=== PATIENT | female | born 1965 | race Caucasian/White ===

== ENCOUNTER 2016-05-01 10:54 | Emergency (ER) | payer MEDICARE, OTHER ==
[~2016-05-01] VITALS: Ht 160 cm; Wt 55.8 kg
[2016-05-01 11:02] VITALS: BP 109/71; PULSE 76; RESP 16; TEMP 98.8; O2SAT 99
--- NOTE | 2016-05-01 11:34 | PD ---
HPI . s/p fall now with left thumb pain Chief Complaint: Fall Time Seen by Provider: 11:34 Travel History International Travel<30 days: No Contact w/Intl Traveler<30days: No Traveled to known affect area: No History of Present Illness HPI 51-year-old female with hearing difficulties and hyperlipidemia here with complaints of a fall earlier today. She now has left thumb pain. Patient tells me she was walking down some stairs when she missed a step and started sliding down the stairwell. She was able to use her left arm to grab onto the railing and sustained a left thumb injury. She also sustained a few scrapes to her right leg, but denies any significant pain in this extremity. She denies any loss of consciousness or head injury. She decided to come to the emergency department for further care due to the pain in her left thumb and is requesting an x-ray. Pain is localized to the left thumb without radiation and rated 6/10. Leg pain is rates as 2/10. She is also c/o of pain on her left side of her chest with inspiration (made complaints to radiology receptionist). She is requesting an xray for that as well. She is visiting from [place]. She is left handed dominant. We used [facility] on the computer. [facility] Past Medical History High Cholesterol: Yes Social History Tobacco Use: No Allergies-Medications (Allergen,Severity, Reaction): Coded Allergies: Codeine (Verified Allergy, Severe, 05/01/16) Demerol (Verified Allergy, Severe, 05/01/16) Morphine (Verified Allergy, Severe, 05/01/16) Uncoded Allergies: SENNATION (Allergy, Severe, 05/01/16) Reported Meds & Prescriptions Reported Meds & Active Scripts Active Ibuprofen 800 Mg Tab 800 Mg PO TID Reported [cholesterol med] Review of Systems General / Constitutional: No: Fever Eyes: No: Visual changes HENT: No: Headaches Cardiovascular: No: Chest Pain or Discomfort Respiratory: No: Shortness of Breath Gastrointestinal: No: Abdominal Pain Genitourinary: No: Dysuria Musculoskeletal: Positive: Pain (left thumb pain/ left rib pain) Skin: No Rash Neurologic: No: Weakness Psychiatric: No: Depression Endocrine: No: Polydipsia Hematologic/Lymphatic: No: Easy Bruising Physical Exam Narrative GENERAL: AAO x 3, no acute distress, Well-nourished, well-developed patient. SKIN: Warm and dry. No visible rashes or bruising. small abrasion to right leg, left hand HEAD: Normocephalic and atraumatic. EYES: No scleral icterus. No injection or drainage. ENT: No nasal drainage noted. Mucous membranes pink. Airway patent. NECK: Supple, trachea midline. No JVD. CARDIOVASCULAR: Regular rate and rhythm without murmurs, gallops, or rubs. RESPIRATORY: Breath sounds equal bilaterally. No accessory muscle use. No rhonchi or rales. GASTROINTESTINAL: Abdomen soft, non-tender, nondistended. EXTREMITIES: No cyanosis or edema. left thumb no edema, ecchymosis, + point tenderness at metacarpal phalangeal joint BACK: Nontender without obvious deformity. No CVA tenderness. PSYCH: AAO x 3, normal affect. Data Data Last Documented VS Vital Signs Date Time Temp Pulse Resp B/P Pulse Ox O2 Delivery O2 Flow Rate FiO2 05/01/16 11:42 96 Room Air 05/01/16 11:02 98.8 76 16 109/71 Orders Hand, Complete ([id number]) (05/01/16 11:43) Chest, Single Ap (05/01/16 12:11) ^ Jaxson Bandage (05/01/16 14:01) MDM Medical Decision Making Medical Screen Exam Complete: Yes Emergency Medical Condition: Yes Medical Record Reviewed: Yes Differential Diagnosis Thumb contusion, less likely thumb sprain, less likely rib fracture Narrative Course 51-year-old female with hearing difficulties and hyperlipidemia here with complaints of a fall earlier today. She now has left thumb pain. Patient tells me she was walking down some stairs when she missed a step and started sliding down the stairwell. She was able to use her left arm to grab onto the railing and sustained a left thumb injury. She also sustained a few scrapes to her right leg, but denies any significant pain in this extremity. She denies any loss of consciousness or head injury. She decided to come to the emergency department for further care due to the pain in her left thumb and is requesting an x-ray. Pain is localized to the left thumb without radiation and rated 6/10. Leg pain is rates as 2/10. She is also c/o of pain on her left side of her chest with inspiration (made complaints to radiology receptionist). She is requesting an xray for that as well. She is visiting from [place]. Patient seen and examined. I do not believe that she has a thumb fracture or any type of rib injury. It is possible that she might have some contusions and is also experiencing some soft tissue pain after the fall. Patient is wanting x-rays and tells me that is the only reason she came to the emergency department. I actually did not recommend cxr, but while in radiology for hand xray, patient c/o rib pain and cardiac cath lab radiology technologist requested xray : no rib fracture or hand fracture. advised ibuprofen jaxson wrap provided to patient abrasions cleaned with saline and antibiotic ointment applied advised to clean at home with soap and water and to use Neosporin Patient verbalized understanding of instructions, questions were answered, and thanked me for their care. I advised them if their condition worsens, please return to the nearest emergency room for further care. Diagnosis Primary Impression: Thumb contusion Qualified Code: S60.012A - Contusion of left thumb without damage to nail, initial encounter Additional Impression: Rib contusion Qualified Code: S20.211A - Rib contusion, right, initial encounter Patient Instructions: Contusion in Adults (ED), General Instructions Additional Instructions: Please return to emergency department if your symptoms return or worsen. Follow up with your primary care provider. You can use [id number] ibuprofen for pain as needed. You can apply ice to your thumb for about 20 minutes, 2-3 times a day. you do not have any rib fractures. You do not have any fractures in your hand. Med/Other Pt SpecificInfo: Prescription(s) given Scripts Ibuprofen 800 Mg Bue059 Mg PO TID #20 TAB Prov:Blaine Boss MD 05/01/16 Disposition: 01 DISCHARGE HOME Condition: Stable Amanda Padilla May 01, 2016 11:34
[2016-05-01] MEDS ORDERED: cholesterol med (11:49)
[2016-05-01] MEDS ORDERED: IBUP800T23 PO (13:01)
--- NOTE | 2016-05-01 13:23 | RADHPO ---
EXAM DATE/TIME: 05/01/2016 12:13 [facility] COMPARISON: No previous studies available for comparison. INDICATIONS : Fell this morning, pain left chest and ribs when taking a deep breath, pain left upper back MEDICAL HISTORY : deaf, communicates by writing SURGICAL HISTORY : None. ENCOUNTER: Initial ACUITY: 1 day PAIN SCORE: 5/10 LOCATION: Left chest FINDINGS: Portable AP view of the chest demonstrates a normal-sized cardiac silhouette. No effusion, consolidat ion, or pneumothorax is visualized. The bones and soft tissues demonstrate no acute abnormality. CONCLUSION: No acute cardiopulmonary abnormality is identified. No rib fracture is appreciated. Chandu Santana MD on May 01, 2016 at 13:19 Board Certified Radiologist. This report was verified electronically.
--- NOTE | 2016-05-01 13:57 | RADHPO ---
EXAM DATE/TIME: 05/01/2016 12:00 [facility] COMPARISON: No previous studies available for comparison. INDICATIONS : Fell this morning, pain anterior and posterior left hand and digits MEDICAL HISTORY : deaf, communicates by writing SURGICAL HISTORY : None. ENCOUNTER: Initial ACUITY: 1 day PAIN SCORE: 5/10 LOCATION: Left hand FINDINGS: Three view examination of the left hand demonstrates no soft tissue swelling, dislocation, or fractur e. The carpal bones appear intact. The interphalangeal and metacarpophalangeal joints are intact. Bony mineralization is normal. CONCLUSION: No acute disease. Blair Pelayo MD on May 01, 2016 at 13:53 Board Certified Radiologist. This report was verified electronically.
== END 2016-05-01 14:20 | disposition home or self-care (01) ==
LOC: PHEFT 10:54
DX: S60.012A Contusion of left thumb without damage to nail, initial encounter (principal); S20.211A Contusion of right front wall of thorax, initial encounter; E78.5 Hyperlipidemia, unspecified; H91.93 Unspecified hearing loss, bilateral; W10.9XXA Fall (on) (from) unspecified stairs and steps, initial encounter
CPT/HCPCS: 71010; 73130; 99283

== ENCOUNTER 2017-08-31 01:58 | Inpatient (IN) ==
[2017-08-31] MEDS ORDERED: Sod Chloride 0.9% Inj 1,000 ML IV.SIG ONE (02:55)
[2017-08-31 03:57] LABS: Baso % (Auto) 0.3 % (0.0-2.0); Eos # (Auto) 0.1 th/mm3 (0.0-0.4); Eos % (Auto) 2.6 % (0.0-4.0); Hematocrit 40.1 % (35.0-46.0); Hemoglobin 13.6 gm/dL (11.6-15.3); Lymph % (Auto) 40.4 % (9.0-44.0); Mean Corpuscular Hemoglobin 30.1 pg (27.0-34.0); Mean Corpuscular Volume 88.5 fL (80.0-100.0); Mean Platelet Volume 8.8 fL (7.0-11.0); Mono # (Auto) 0.4 th/mm3 (0.0-0.9); Mono % (Auto) 7.3 % (0.0-8.0); Neut # (Auto) 2.5 th/mm3 (1.8-7.7); Neut % (Auto) 49.4 % (16.0-70.0); Platelet Count 216 th/mm3 (150-450); Red Blood Count 4.53 mil/mm3 (4.00-5.30); Red Cell Distribution Width 13.4 % (11.6-17.2); White Blood Count 5.1 th/mm3 (4.0-11.0)
[2017-08-31 04:00] LABS: Bilirubin,Urine Negative (Negative); Clarity,Urine Clear (Clear); Color,Urine Colorless (Yellw/Straw); Glucose,Urine (UA) Negative (Negative); Leukocyte Esterase,Urine Negative (Negative); Nitrite,Urine Negative (Negative); Specific Gravity,Urine 1.002 (1.002-1.035)
[2017-08-31 04:07] LABS: Activated Partial Thrombo Time 32.7 sec (24.3-30.1); INR 1.1 Ratio; Prothrombin Time 10.9 sec (9.8-11.6)
--- NOTE | 2017-08-31 04:13 | ED ---
HPI General Chief complaint: Abdominal Pain Stated complaint: abd pain Time Seen by Provider: 08/31/17 02:51 Source: patient and other (Belarusian lead designer) Limitations: other (deaf) History of Present Illness HPI narrative: The patient is a 52 year old female who presents to the [facility] emergency department with a history of abdominal pain that she reports began around midnight. The patient reports that the abdominal pain is around the umbilicus and suprapubic area. The patient reports that the pain is been constant. She reports that it is an aching sensation. The patient reports that the pain is similar to when she has had a bowel obstruction in the past. The patient reports having a prior history of abdominal hernia repair. This was done at another facility years ago. The patient reports having a lump at the site of the prior hernia repair. The patient reports having nausea without vomiting. She denies having any diarrhea. Her last bowel movement was yesterday morning. On review of systems otherwise, the patient denies having any known recent fevers, cough or congestion, neck pain, chest pain, shortness of breath, urinary symptoms, or neurologic symptoms. Related Data Home Medications Medication Instructions Recorded Confirmed lovastatin 10 mg PO DAILY 08/31/17 08/31/17 Allergies Allergy/AdvReac Type Severity Reaction Status Date / Time codeine Allergy Severe Unverified 10/07/16 13:17 meperidine Allergy Severe Unverified 10/07/16 13:17 morphine Allergy Severe Unverified 10/07/16 13:17 SENNATION Allergy Severe Uncoded 05/01/16 11:06 Review of Systems ROS Unobtainable All other systems reviewed negative except as stated in HPI Constitutional Denies fever(s) Eyes Denies change in vision ENT Denies headache(s) and Denies nasal congestion Cardiovascular Denies chest pain Respiratory Denies dyspnea Gastrointestinal Reports abdominal pain, Denies diarrhea, Reports nausea and Denies vomiting Genitourinary Denies difficulty voiding Musculoskeletal Denies myalgias Integumentary/Breasts Denies rash Neurologic Denies headache(s) Psychiatric Denies depression Endocrine Denies polyuria Hematologic/Lymphatic Denies easy bruising [facility] Medical History Medical History Bowel obstruction (Acute) Hernia (Acute) Surgical History Surgical History H/O hernia repair (Acute) History of cholecystectomy (Acute) Social History Social History Second Hand Smoke Exposure: No Smoking Status: Never smoker How Often Do You Have a Drink Containing Alcohol: Never Recent Travel in [facility] within the Last 8 Weeks: No Recent Out of Country Travel within the Last 8 Weeks: No Immunization History Tetanus Immunization: Unsure Hx Influenza Vaccine This Season: No Exam HENMT Head: normocephalic and atraumatic Nose: no nasal discharge and no epistaxis Mouth: moist mucous membranes Eyes Sclera: normal sclerae Pupils: PERRL Neck Neck: trachea midline and no JVD Resp Effort & Inspection: no use of accessory muscles Auscultation: clear to auscultation bilaterally Cardio Rate: regular rate Rhythm: regular rhythm Heart Sounds: no murmurs GI Inspection: non-distended Palpation: soft, no hepatosplenomegaly, no guarding and tender (The patient has a palpable hernia along the lower aspect of the abdomen that was able to be reduced easily. The patient continues to have tenderness around the site that is diminished compared to at its onset at midnight.) periumbilically and suprapubicly; with no rebound tenderness Auscultation: hypoactive bowel sounds Skin General: dry skin (warm) Neuro General: alert and awake Speech: speech normal Motor: no movement abnormalities noted Sensory Exam: no sensory deficits noted Extrem General: normal to inspection, no clubbing, no cyanosis and no edema Psych Mood: congruent mood Affect: normal affect Judgment: judgment good Course Hospital Course: During the course of the patient's emergency department visit, the patient's history, examination, and differential diagnosis were reviewed with the patient. The patient was placed on a night monitor with oximetry and frequent blood pressure monitoring. The patient had IV access obtained and blood work sent for analysis. A CT scan of the abdomen and pelvis was ordered. An Bel[place]ian lead designer was obtained for the patient to obtain additional history. The patient was initially provided normal saline IV fluids, Compazine for nausea. Reevaluation(s) Reevaluation #1: The patient on reexamination reported feeling improved. Consultations Consultation #1: The patient's case including history, pertinent physical examination findings, and laboratory studies were discussed with Dr. Malagon. It was agreed that the patient would be admitted to the hospitalist service. Time: 06:15 Consultation #2: The patient's case including history, pertinent physical examination findings, and laboratory studies were discussed with Dr. Martinez. It was agreed that the patient would be admitted to the hospitalist service. Time: 06:23 Initial Documented Vital Signs Temperature 97.6 F 08/31/17 02:04 Pulse Rate 66 08/31/17 02:04 Respiratory Rate 16 08/31/17 02:04 Blood Pressure 143/77 H 08/31/17 02:04 Pulse Oximetry 100 08/31/17 02:04 Last Documented Vital Signs Temperature 97.6 F 08/31/17 02:04 Pulse Rate 70 08/31/17 02:38 Respiratory Rate 16 08/31/17 02:38 Blood Pressure 124/67 08/31/17 02:38 Pulse Oximetry 99 08/31/17 06:44 Medical Decision Making MDM Narrative Medical decision making narrative: The patient's diagnostic evaluation is remarkable for , PT PTT unremarkablea CBC that shows a normal white count, hemoglobin 13.6, platelets 216 with a normal differential, chemistry is remarkable CMP is within normal limits, troponin I is less than 0.02, CPK 76, lactic acid 0.6, lipase 215. The patient's chest x-ray showed no acute abnormality. CT scan of the abdomen and pelvis showed small anterior abdominal wall hernia approximately 5 cm caudal to the umbilicus containing a loop of small bowel with obstruction of the and immediate aberrant small bowel loops. No evidence of bowel infarction or perforation. I spoke to Dr. Castellanos, the general surgeon on-call regarding this patient's case. He did evaluate and examine the patient. The patient's hernia is reduced on his exam as well. He recommends that the patient be admitted to the hospitalist service and that the patient be maintained n.p.o. He recommended that a consultation be placed with Dr. Arthur Gan for operative repair. Differential Diagnosis Differential Diagnosis: Incarcerated hernia, versus bowel obstruction, versus Lab Data Result diagrams: 08/31/17 03:45 08/31/17 03:45 Lab Results 08/31/17 08/31/17 08/31/17 Range/Units 03:45 03:45 03:45 WBC 5.1 (4.0-11.0) th/mm3 RBC 4.53 (4.00-5.30) mil/mm3 Hgb 13.6 (11.6-15.3) gm/dL Hct 40.1 (35.0-46.0) % MCV 88.5 (80.0-100.0) fL MCH 30.1 (27.0-34.0) pg MCHC 34.0 (32.0-36.0) % RDW 13.4 (11.6-17.2) % Plt Count 216 (150-450) th/mm3 MPV 8.8 (7.0-11.0) fL Neut % (Auto) 49.4 (16.0-70.0) % Lymph % (Auto) 40.4 (9.0-44.0) % Boyle % (Auto) 7.3 (0.0-8.0) % Eos % (Auto) 2.6 (0.0-4.0) % Baso % (Auto) 0.3 (0.0-2.0) % Neut # (Auto) 2.5 (1.8-7.7) th/mm3 Lymph # (Auto) 2.0 (1.0-4.8) th/mm3 Boyle # (Auto) 0.4 (0.0-0.9) th/mm3 Eos # (Auto) 0.1 (0.0-0.4) th/mm3 Baso # (Auto) 0.0 (0.0-0.2) th/mm3 WBC Differential . Differential Comment Auto diff final PT 10.9 (9.8-11.6) sec INR 1.1 Ratio APTT 32.7 H (24.3-30.1) sec Sodium 142 (136-145) meq/L Potassium 3.6 (3.5-5.1) meq/L Chloride 105 (98-107) meq/L Carbon Dioxide 29.8 (21.0-32.0) meq/L Anion Gap 7 (5-15) meq/L BUN 12 (7-18) mg/dL Creatinine 0.62 (0.50-1.00) mg/dL Estimated GFR Greater than 89 (>89) mL/min Random Glucose 79 (74-106) mg/dL Lactic Acid (0.4-2.0) mmol/L Calcium 9.1 (8.5-10.1) mg/dL Total Bilirubin 0.7 (0.2-1.0) mg/dL AST 18 (15-37) U/L ALT 22 (10-53) U/L Alkaline Phosphatase 70 (45-117) U/L Total Creatine Kinase 76 (26-192) U/L Troponin I Less than 0.02 L (0.02-0.05) ng/mL Total Protein 8.0 (6.4-8.2) g/dL Albumin 4.4 (3.4-5.0) g/dL Lipase 215 (73-393) U/L Urine Color (Yellw/Straw) Urine Clarity (Clear) Urine pH (5.0-8.5) Ur Specific [place] (1.002-1.035) Urine Protein (Neg-Trace) mg/dL Urine Glucose (UA) (Negative) mg/dL Urine Ketones (Negative) mg/dL Urine Occult Blood (Negative) Urine Nitrate (Negative) Urine Bilirubin (Negative) Urine Urobilinogen (Less than 2) mg/dL Ur Leukocyte Esterase (Negative) Urine RBC (0-3) /hpf Micro UA Comment Urine Culture Comments 08/31/17 08/31/17 Range/Units 03:45 03:50 WBC (4.0-11.0) th/mm3 RBC (4.00-5.30) mil/mm3 Hgb (11.6-15.3) gm/dL Hct (35.0-46.0) % MCV (80.0-100.0) fL MCH (27.0-34.0) pg MCHC (32.0-36.0) % RDW (11.6-17.2) % Plt Count (150-450) th/mm3 MPV (7.0-11.0) fL Neut % (Auto) (16.0-70.0) % Lymph % (Auto) (9.0-44.0) % Boyle % (Auto) (0.0-8.0) % Eos % (Auto) (0.0-4.0) % Baso % (Auto) (0.0-2.0) % Neut # (Auto) (1.8-7.7) th/mm3 Lymph # (Auto) (1.0-4.8) th/mm3 Boyle # (Auto) (0.0-0.9) th/mm3 Eos # (Auto) (0.0-0.4) th/mm3 Baso # (Auto) (0.0-0.2) th/mm3 WBC Differential Differential Comment PT (9.8-11.6) sec INR Ratio APTT (24.3-30.1) sec Sodium (136-145) meq/L Potassium (3.5-5.1) meq/L Chloride (98-107) meq/L Carbon Dioxide (21.0-32.0) meq/L Anion Gap (5-15) meq/L BUN (7-18) mg/dL Creatinine (0.50-1.00) mg/dL Estimated GFR (>89) mL/min Random Glucose (74-106) mg/dL Lactic Acid 0.6 (0.4-2.0) mmol/L Calcium (8.5-10.1) mg/dL Total Bilirubin (0.2-1.0) mg/dL AST (15-37) U/L ALT (10-53) U/L Alkaline Phosphatase (45-117) U/L Total Creatine Kinase (26-192) U/L Troponin I (0.02-0.05) ng/mL Total Protein (6.4-8.2) g/dL Albumin (3.4-5.0) g/dL Lipase (73-393) U/L Urine Color Colorless (Yellw/Straw) Urine Clarity Clear (Clear) Urine pH 7.0 (5.0-8.5) Ur Specific [place] 1.002 (1.002-1.035) Urine Protein Negative (Neg-Trace) mg/dL Urine Glucose (UA) Negative (Negative) mg/dL Urine Ketones Negative (Negative) mg/dL Urine Occult Blood Small H (Negative) Urine Nitrate Negative (Negative) Urine Bilirubin Negative (Negative) Urine Urobilinogen Less than 2 (Less than 2) mg/dL Ur Leukocyte Esterase Negative (Negative) Urine RBC 1 (0-3) /hpf Micro UA Comment Culture not ind Urine Culture Comments Culture not ind Imaging Data Radiologist's impression: ITS Impressions Abdomen/Pelvis CT 08/31/17 02:51 CONCLUSION: 1. Small anterior abdominal wall hernia approximately 5 cm caudal to the umbilicus containing a loop of small bowel with obstruction of the immediate afferent small bowel loops. No evidence for bowel infarction or perforation. Chest X-Ray 08/31/17 02:51 CONCLUSION: 1. No acute abnormality or significant interval change. Discharge Plan Discharge Disposition Patient Disposition: 30 Still Patient Discharge Details Discharge Problem: Hernia, Small bowel obstruction Physicians Team ED Provider: Jessica Malcolm Primary Care Provider: Primary Care Mitzi Joy Attending Provider: Arnaud Erickson Other Providers: Arthur Gan Discharge Interventions Interventions: Vital Signs Last Done: 08/31/17 02:38 Status ED Status: Admitted Patient
[2017-08-31 04:14] LABS: Alanine Aminotransferase 22 U/L (10-53); Albumin 4.4 g/dL (3.4-5.0); Anion Gap 7 meq/L (5-15); Aspartate Aminotransferase 18 U/L (15-37); Blood Urea Nitrogen 12 mg/dL (7-18); Calcium 9.1 mg/dL (8.5-10.1); Carbon Dioxide 29.8 meq/L (21.0-32.0); Chloride 105 meq/L (98-107); Glomerular Filtration Rate Greater Than 89 mL/min (>89); Glucose,Random 79 mg/dL (74-106); Lipase 215 U/L (73-393); Potassium 3.6 meq/L (3.5-5.1); Sodium 142 meq/L (136-145)
[2017-08-31 04:18] LABS: Alkaline Phosphatase 70 U/L (45-117); Creatine Kinase 76 U/L (26-192)
--- NOTE | 2017-08-31 04:33 | XR ---
EXAM DATE: 08/31/2017 3:56 AM EDT AGE/SEX: 52 years / Female INDICATIONS: Shortness of breath. CLINICAL DATA: This is the patient's initial encounter. Patient reports that signs and symptoms have been present for 1 day and indicates a pain score of 0/10. MEDICAL/SURGICAL HISTORY: None. None. COMPARISON: [facility], CHEST SINGLE AP, 05/01/2016. . FINDINGS: No new focal pleural or parenchymal opacities. The cardiomediastinal contours are unremarkable. Osse ous structures are intact. CONCLUSION: 1. No acute abnormality or significant interval change. Electronically signed by: Jayme Bailey MD 08/31/2017 4:32 AM EDT
--- NOTE | 2017-08-31 06:04 | CT ---
EXAM DATE: 08/31/2017 5:33 AM EDT AGE/SEX: 52 years / Female INDICATIONS: Abdominal pain. CLINICAL DATA: This is the patient's initial encounter. Patient reports that signs and symptoms have been present for 1 day and indicates a pain score of 7/10. MEDICAL/SURGICAL HISTORY: . Hernia Cholecystectomy. ORAL CONTRAST: No oral contrast ingested. RADIATION DOSE: 6.64 CTDI (mGy) COMPARISON: No prior exams available for comparison. TECHNIQUE: Multiple contiguous axial images were obtained through the abdomen and pelvis following b olus infusion of 75 ml Omnipaque 350 (iohexol) nonionic water-soluble contrast as a single exam dos e. No oral contrast ingested. Using automated exposure control and adjustment of the mA and/or kV ac cording to patient size, radiation dose was kept as low as reasonably achievable to obtain optimal di agnostic quality images. DICOM format image data is available electronically for review and comparis on. FINDINGS: LOWER LUNGS: The visualized lower lungs are clear. LIVER: The liver has a homogeneous density without space-occupying lesion. Gallbladder is surgically absent with mild intra and extra hepatic ductal dilatation which likely reflects reservoir effect. SPLEEN: Homogeneous density without enlargement. PANCREAS: Unremarkable without mass or calcification. KIDNEYS: Kidneys demonstrate symmetrical enhancement and are symmetrical in size without evidence fo r radiopaque renal calculi or hydronephrosis. ADRENAL GLANDS: Unremarkable. AORTA: Tram-aneurysmal. BOWEL/MESENTERY: There is an infraumbilical anterior abdominal wall hernia which contains a loop of small bowel. Immediate afferent small bowel loops are dilated and fluid-filled with fecal location. M ore proximal jejunal loops are decompressed. Colon is decompressed. There is no pneumatosis or free a ir. No significant free fluid or drainable fluid collection. ABDOMINAL WALL: Small anterior abdominal wall hernia approximately 5 cm caudal to the umbilicus. RETROPERITONEUM: No evidence of adenopathy in the retrocrural, para-aortic, or deep pelvic regions. BLADDER: Contours are smooth. REPRODUCTIVE: No abnormal masses or calcifications seen. BONY STRUCTURES: Degenerative spondylosis of the lower lumbar spine most prominently at L5-S1. CONCLUSION: 1. Small anterior abdominal wall hernia approximately 5 cm caudal to the umbilicus containing a loop of small bowel with obstruction of the immediate afferent small bowel loops. No evidence for bowel i nfarction or perforation. Electronically signed by: Jayme Bailey MD 08/31/2017 6:03 AM EDT
[2017-08-31] MEDS ORDERED: Sod Chloride 0.9% Inj 1,000 ML IV.CONT SCH (07:00)
--- NOTE | 2017-08-31 09:34 | ECG ---
Date Performed: 08/31/2017 Time Performed: 04:54:04 PTAGE: 52 years EKG: Sinus rhythm NORMAL ECG NO PREVIOUS TRACING DOCTOR: Kory Jeff Interpretating Date/Time 08/31/2017 09:31:47
--- NOTE | 2017-08-31 11:12 | MB ---
cc: Arthur Gan MD DATE: 08/31/2017 CHIEF COMPLAINT: Abdominal pain, bowel obstruction, incarceration of hernia. HISTORY OF PRESENT ILLNESS: The patient is a 52-year-old female who presented with a history of multiple small bowel obstructions, history of ventral hernia repair. The patient is complaining of acute onset of abdominal pain, nausea and vomiting. The patient states the pain started around the umbilicus and suprapubic area, started last night, continued to get worse. She states the pain was a 9/10, currently a 6/10, worse with movement, better with lying still. Last bowel movement was yesterday. She denies any fevers or chills. She came to the emergency department for further evaluation including a CT scan showing an incarceration of ventral hernia and some dilated proximal small bowel loops. Surgery was consulted. PAST MEDICAL HISTORY: Deaf. History of hysterectomy, bowel obstruction. PAST SURGICAL HISTORY: Cholecystectomy, hernia repair x2, hysterectomy. SOCIAL HISTORY: Denies smoking, ETOH or IVDA. ALLERGIES: CODEINE, MEPERIDINE, MORPHINE. MEDICATIONS: See electronic medical record. FAMILY HISTORY: Denies diabetes or hypertension. REVIEW OF SYSTEMS: GENERAL: Denies eye pain, ear pain. NECK: Denies swelling or pain. LUNGS: Denies cough or wheeze. HEART: Denies palpitations or chest pain. ABDOMEN: Complains of nausea, vomiting, abdominal pain. GENITOURINARY: Denies dysuria, hematuria. ENDOCRINE: Denies polyuria or polydipsia. INTEGUMENT: Denies any new masses or lesions. PHYSICAL EXAMINATION: GENERAL: The patient in no acute distress. VITAL SIGNS: Temperature 97.6, pulse 66, respirations 16, blood pressure 143/77, saturation 100%. HEENT: Pupils equal, round, reactive. NECK: Supple. Trachea midline. HEART: S1, S2, regular. LUNGS: Bilateral expansion, clear. ABDOMEN: Soft. Positive tenderness to palpation, worse around periumbilical area and previous incision site. Well-healed surgical scars. No rebound. EXTREMITIES: Warm and well perfused. NEUROLOGIC: GCS of 15. 5/5 motor in all extremities. PSYCHIATRIC: Appropriate mood, appropriate insight. LABORATORY AND DIAGNOSTIC DATA: WBC 5.1, hemoglobin 13.6, hematocrit 40.1, platelets 216. Sodium 142, potassium 3.6, chloride 105, BUN 12, creatinine 0.6, glucose 79, lactate 0.6, AST 18, ALT 20, alkaline phosphatase 70, lipase 215. IMAGING STUDIES: CT reviewed by myself showing incarceration of umbilical hernia with small bowel loop. No evidence of free air or free fluid. ASSESSMENT AND PLAN: The patient is a 52-year-old female with history of bowel obstruction, previously treated nonoperatively, history of hernia repair x2, ventral, who presents with a small-bowel obstruction, recurrent and hernia. PLAN: After a full workup, patient with the above-named issues. At this point, discussed with the patient and family at bedside. I recommend undergoing hernia repair as the patient has had several small bowel obstructions in the past and the hernia appeared to be reduced at bedside. The patient is in still mild to moderate pain. However, given the patient's preferences and understanding, the patient would like to attempt initial nonoperative treatment. Discussed with the patient we will continue to follow with abdominal exams and laboratory data. Further discussed if any clinical deterioration or change that we would need to go to the operating room for intervention. She states understanding of this. Discussed with the patient via dial mounter and discussed with family at bedside. The patient can have ice chips, otherwise n.p.o., IV fluids, pain control. We will check abdominal x-ray and abdominal exams. MD ELIZABETH Sandoval/EDOUARD , 10:51 AM , 11:10 AM
--- NOTE | 2017-08-31 11:19 | P.HPIM ---
History of Present Illness Service: [facility] Primary Care Physician: No Primary Care Physician Chief Complaint: Abdominal pain History of Present Illness: History obtained with the assistance of a director of sustainable design in the room 52-year-old female with a medical history significant for prior bowel obstruction and abdominal hernia repair. The patient presented to the emergency room with complaint of periumbilical pain that started a few hours prior to presentation. She reports the pain has been constant and is similar to prior bowel obstruction. She endorses nausea but denies vomiting. Last bowel movement was yesterday. She denies any chest pain, shortness of breath, no diarrhea. CT scan in the emergency room showed an incarceration of ventral hernia and some dilated proximal small bowel loops. - Diagnosis (1) Small bowel obstruction (2) Hernia Inpatient Certification: I certify that the inpatient services were ordered in accordance with Medicare regulations governing the order. This includes certification that hospital inpatient services are reasonable and necessary and in the case of services not specified as inpatient-only under 42 CFR 419.22(n), that they are appropriately provided as inpatient services in accordance to with the 2-midnight benchmark under 43 CFR 412.3(e) Estimated Total Length of Stay (Days): 3 Plans for Post Hospital Care: Not yet determined PMFSH - History History Provided By: Patient - Medical History Medical History: Medical History (Last Updated 08/31/17 @ 02:06 by Veronika Boggs) Bowel obstruction Hernia - Surgical History Surgical History: Surgical History (Last Updated 08/31/17 @ 07:19 by Jessica Malcolm MD) H/O hernia repair History of cholecystectomy - Tobacco History Second Hand Smoke Exposure: No Smoking Status: Never smoker - Alcohol History How Often Do You Have a Drink Containing Alcohol: Never - Travel History Recent Travel in the [facility] Within the Last 8 Weeks: No Recent Travel Out of the Country Within the Last 8 Weeks: No - Immunization History Tetanus Immunization: Unsure Hx Influenza Vaccine This Season: No Medications and Allergies Active Medications: Active Medications Sodium Chloride (Ns Inj) 1,000 mls @ 100 mls/hr IV.CONT .Q10H [facility] Sodium Chloride (Ns Flush) 2 ml IV.FLUSH PRN PRN PRN Reason: FLUSH AFTER USING IV ACCESS Allergies Allergy/AdvReac Type Severity Reaction Status Date / Time codeine Allergy Severe Unverified 10/07/16 13:17 meperidine Allergy Severe Unverified 10/07/16 13:17 morphine Allergy Severe Unverified 10/07/16 13:17 SENNATION Allergy Severe Uncoded 05/01/16 11:06 Home Medications Medication Instructions Recorded Confirmed Type lovastatin 10 mg PO DAILY 08/31/17 08/31/17 History Exam Vital signs: Vital Signs 08/31/17 02:04 08/31/17 02:38 08/31/17 06:44 Temperature 97.6 F Pulse Rate 66 70 Respiratory Rate 16 16 Blood Pressure 143/77 H 124/67 Pulse Oximetry 100 100 99 08/31/17 09:27 Temperature 98.1 F Pulse Rate 83 Respiratory Rate 15 Blood Pressure 99/57 L Pulse Oximetry 98 Intake & Output 08/30/17 08/31/17 08/31/17 18:59 06:59 18:59 Weight 52.163 kg 52.163 kg Narrative: CONSTITUTIONAL/GENERAL: This is an adequately nourished patient, in no apparent distress. Vital signs reviewed SKIN: No jaundice, rashes, or concerning lesions. Not diaphoretic. HEAD: Atraumatic. Normocephalic. EYES: Pupils equal and round and reactive. Extra ocular motions are intact. No scleral icterus. No injection or drainage. ENT: Hearing grossly normal. Nose without drainage. Throat without visible erythema, exudates, masses, or lesions. NECK: Trachea midline. Neck is supple, non-tender. No palpable thyroid enlargement or nodularity. CARDIOVASCULAR: Normal rate and regular rhythm without murmurs, gallops, or rubs. No JVD. Peripheral pulses 2+ and symmetric. RESPIRATORY/CHEST: Symmetric, unlabored respirations. Breath sounds equal and clear to auscultation bilaterally. No wheezes, crackles, rales, or rhonchi. GASTROINTESTINAL: Abdomen soft, there is a palpable abdominal wall defect below the umbilicus. Tender to palpation around the umbilicus. Hernia easily reducible. MUSCULOSKELETAL: Extremities without clubbing, cyanosis, or edema. NEUROLOGICAL: Awake and alert. Motor and sensory grossly within normal limits. Follows commands. Results - Labs CBC & Chem 7: 08/31/17 03:45 08/31/17 03:45 Labs: Short CBC 08/31/17 Range/Units 03:45 WBC 5.1 (4.0-11.0) th/mm3 Hgb 13.6 (11.6-15.3) gm/dL Hct 40.1 (35.0-46.0) % Plt Count 216 (150-450) th/mm3 BMP 08/31/17 03:45 Sodium 142 Potassium 3.6 Chloride 105 Carbon Dioxide 29.8 BUN 12 Creatinine 0.62 Calcium 9.1 Cardiac Enzymes 08/31/17 Range/Units 03:45 Total Creatine Kinase 76 (26-192) U/L Troponin I Less than 0.02 L (0.02-0.05) ng/mL Liver Function 08/31/17 Range/Units 03:45 Total Bilirubin 0.7 (0.2-1.0) mg/dL AST 18 (15-37) U/L ALT 22 (10-53) U/L Alkaline Phosphatase 70 (45-117) U/L Albumin 4.4 (3.4-5.0) g/dL Urine 08/31/17 Range/Units 03:50 Urine Color Colorless (Yellw/Straw) Urine Clarity Clear (Clear) Urine pH 7.0 (5.0-8.5) Ur Specific [place] 1.002 (1.002-1.035) Urine Protein Negative (Neg-Trace) mg/dL Urine Glucose (UA) Negative (Negative) mg/dL - Imaging Impressions Abdomen/Pelvis CT 08/31/17 02:51 CONCLUSION: 1. Small anterior abdominal wall hernia approximately 5 cm caudal to the umbilicus containing a loop of small bowel with obstruction of the immediate afferent small bowel loops. No evidence for bowel infarction or perforation. Chest X-Ray 08/31/17 02:51 CONCLUSION: 1. No acute abnormality or significant interval change. Caprini VTE Risk Assessment Caprini VTE Risk Assessment: Moderate/High Risk (score >= 2) Caprini Risk Assessment Model: Point Value = 1 Point Value = 2 Point Value = 3 Point Value = 5 Age 41-60 Minor surgery BMI > 25 kg/m2 Swollen legs Varicose veins or History of unexplained or recurrent spontaneous Oral contraceptives or hormone replacement Sepsis (< 1 month) Serious lung disease, including pneumonia (< 1 month) Abnormal pulmonary function Acute myocardial infarction Congestive heart failure (< 1 month) History of inflammatory bowel disease Medical patient at bed rest Age 61-74 Arthroscopic surgery Major open surgery (> 45 min) Laparoscopic surgery (> 45 min) Malignancy Confined to bed (> 72 hours) Immobilizing plaster cast Central venous access Age >= 75 History of VTE Family history of VTE Factor V Leiden Prothrombin [id number] Lupus anticoagulant Anticardiolipin antibodies Elevated serum homocysteine Heparin-induced thrombocytopenia Other congenital or acquired thrombophilia Stroke (< 1 month) Elective arthroplasty Hip, pelvis, or leg fracture Acute spinal cord injury (< 1 month) Prophylaxis Regimen: Total Risk Factor Score Risk Level Prophylaxis Regimen 0-1 Low Early ambulation 2 Moderate Order ONE of the following: *Sequential Compression Device (SCD) *Heparin 5000 units SQ BID 3-4 Higher Order ONE of the following medications: *Heparin 5000 units SQ TID *Enoxaparin/Lovenox 40 mg SQ daily (WT < 150 kg, CrCl > 30 mL/min) *Enoxaparin/Lovenox 30 mg SQ daily (WT < 150 kg, CrCl > 10-29 mL/min) *Enoxaparin/Lovenox 30 mg SQ BID (WT < 150 kg, CrCl > 30 mL/min) AND/OR *Sequential Compression Device (SCD) 5 or more Highest Order ONE of the following medications: *Heparin 5000 units SQ TID (Preferred with Epidurals) *Enoxaparin/Lovenox 40 mg SQ daily (WT < 150 kg, CrCl > 30 mL/min) *Enoxaparin/Lovenox 30 mg SQ daily (WT < 150 kg, CrCl > 10-29 mL/min) *Enoxaparin/Lovenox 30 mg SQ BID (WT < 150 kg, CrCl > 30 mL/min) AND *Sequential Compression Device (SCD) Assessment and Plan - Assessment (1) Small bowel obstruction Code(s): K56.609 - Unspecified intestinal obstruction, unspecified as to partial versus complete obstruction Status: Acute Plan: Patient with recurrent bowel obstruction. She has an abdominal hernia. Surgery has been consulted and recommended hernia repair. Patient and family choosing conservative management for now. Discussed with patient and daughter at bedside. Continue supportive care, IVF, pain control. Serial abdominal exam and follow- up x-ray per surgery recommendations. Patient and family understand that if her condition deteriorates, she may need surgery. (2) Hernia Code(s): K46.9 - Unspecified abdominal hernia without obstruction or gangrene Status: Acute Plan: See above.
[2017-08-31] MEDS: Heparin - SQ 10,000 UNITS/ML Vial SQ SCH (18:15)
[2017-09-01] MEDS: Heparin - SQ 10,000 UNITS/ML Vial SQ SCH ×2 (06:22→18:47)
--- NOTE | 2017-09-01 10:51 | P.PNGS ---
Subjective Patient reports: feels better (mild abdominal pain, feels like needs to go have bm, no nausea) Physical Exam Vital signs: Vital Signs 08/31/17 13:34 08/31/17 13:45 08/31/17 16:00 Temperature 98.6 F 98.1 F 97.6 F Pulse Rate 69 61 82 Respiratory Rate 15 16 16 Blood Pressure 103/58 L 109/73 127/79 Pulse Oximetry 99 99 100 08/31/17 20:00 08/31/17 23:27 09/01/17 04:00 Temperature 99.4 F 98.1 F 97.6 F Pulse Rate 61 70 53 L Respiratory Rate 16 16 18 Blood Pressure 104/73 95/57 L 102/59 L Pulse Oximetry 99 99 99 09/01/17 08:00 Temperature 97.8 F Pulse Rate 58 L Respiratory Rate 20 Blood Pressure 100/60 Pulse Oximetry 96 Intake & Output 08/31/17 09/01/17 09/01/17 18:59 06:59 18:59 Intake Total 1900 / 1900 1000 / 1000 Balance 1900 / 1900 1000 / 1000 Weight 52.163 kg Intake: IV 1900 / 1900 1000 / 1000 LR 1000 mL Inj 1,000 ML @ 100 1000 / 1000 mls/hr IV.CONT .Q10H [facility] Rx#: [id number] NS Inj 1,000 ML @ 100 mls/hr IV 900 / 900 .CONT .Q10H [facility] Rx#:[id number] - Constitutional no acute distress - Routine Respiratory Exam Present: CTA bilaterally - Routine Cardiovascular Exam Present: RRR - Routine Abdominal Exam Present: soft (palpable hernia, reduced, mild ttp) Assessment and Plan - Plan ventral incisional hernia, sp reduction PLAN Ok for clear diet abdominal exams non op mgnt for now
[2017-09-01] MEDS: Acetaminophen 500 MG Tablet PO PRN ×2 (12:41→21:30)
--- NOTE | 2017-09-01 13:12 | P.PNIM ---
Subjective Interval history: Patient reports she is feeling much better. Abdominal pain mostly resolved. She has been passing gas. No bowel movement yet. Physical Exam Vital signs: Vital Signs 08/31/17 13:34 08/31/17 13:45 08/31/17 16:00 Temperature 98.6 F 98.1 F 97.6 F Pulse Rate 69 61 82 Respiratory Rate 15 16 16 Blood Pressure 103/58 L 109/73 127/79 Pulse Oximetry 99 99 100 08/31/17 20:00 08/31/17 23:27 09/01/17 04:00 Temperature 99.4 F 98.1 F 97.6 F Pulse Rate 61 70 53 L Respiratory Rate 16 16 18 Blood Pressure 104/73 95/57 L 102/59 L Pulse Oximetry 99 99 99 09/01/17 08:00 09/01/17 12:00 Temperature 97.8 F 97.9 F Pulse Rate 58 L 59 L Respiratory Rate 20 20 Blood Pressure 100/60 111/63 Pulse Oximetry 96 98 Intake & Output 08/31/17 09/01/17 09/01/17 18:59 06:59 18:59 Intake Total 1900 / 1900 1000 / 1000 Balance 1900 / 1900 1000 / 1000 Weight 52.163 kg Intake: IV 1900 / 1900 1000 / 1000 LR 1000 mL Inj 1,000 ML @ 100 1000 / 1000 mls/hr IV.CONT .Q10H [facility] Rx#: [id number] NS Inj 1,000 ML @ 100 mls/hr IV 900 / 900 .CONT .Q10H [facility] Rx#:[id number] Narrative: CONSTITUTIONAL/GENERAL: This is an adequately nourished patient, in no apparent distress. Vital signs reviewed CARDIOVASCULAR: Normal rate and regular rhythm without murmurs, gallops, or rubs. No JVD. Peripheral pulses 2+ and symmetric. RESPIRATORY/CHEST: Symmetric, unlabored respirations. Breath sounds equal and clear to auscultation bilaterally. GASTROINTESTINAL: Abdomen soft, there is a palpable abdominal wall defect below the umbilicus. Tender to palpation around the umbilicus. Hernia easily reducible. MUSCULOSKELETAL: Extremities without clubbing, cyanosis, or edema. NEUROLOGICAL: Awake and alert. Motor and sensory grossly within normal limits. Follows commands. Results - Labs CBC & Chem 7: 08/31/17 03:45 08/31/17 03:45 Assessment and Plan - Assessment (1) Small bowel obstruction Code(s): K56.609 - Unspecified intestinal obstruction, unspecified as to partial versus complete obstruction Status: Acute Plan: Patient with recurrent bowel obstruction. She has an abdominal hernia. Surgery is following. Patient is improving with conservative management. Continue supportive care, IVF, pain control. Serial abdominal exam. Patient and family understand that if her condition deteriorates, she may need surgery. Much improved today. Advance diet as tolerated. (2) Hernia Code(s): K46.9 - Unspecified abdominal hernia without obstruction or gangrene Status: Acute Plan: See above.
[2017-09-02] MEDS: Heparin - SQ 10,000 UNITS/ML Vial SQ SCH (05:41)
--- NOTE | 2017-09-02 11:48 | P.DS ---
Date of admission: 08/31/17 06:32 Primary care physician: No Primary Care Physician Brief History from admission: History obtained with the assistance of a test designer in the room 52-year-old female with a medical history significant for prior bowel obstruction and abdominal hernia repair. The patient presented to the emergency room with complaint of periumbilical pain that started a few hours prior to presentation. She reports the pain has been constant and is similar to prior bowel obstruction. She endorses nausea but denies vomiting. Last bowel movement was yesterday. She denies any chest pain, shortness of breath, no diarrhea. CT scan in the emergency room showed an incarceration of ventral hernia and some dilated proximal small bowel loops. Update on the day of discharge 09/02/17 Patient reports she is feeling great. No abdominal pain, no nausea or vomiting. Tolerating her diet. Eager to go home. DS: Diagnosis - Discharge Diagnosis (1) Small bowel obstruction Status: Acute (2) Hernia Status: Acute DS: Medications - Discharge Medications Prescriptions: docusate sodium [Colace] 100 mg PO DAILY #30 cap DS: Summary Hospital Course: 52-year-old female admitted with recurrent bowel obstruction. She has an abdominal hernia. Patient was followed by general surgery. She was treated conservatively. Obstruction spontaneously resolved. Patient had several bowel movements. This is a recurrence for the patient. However patient and family do not want surgery at this time. Case discussed with Dr. Gan on day of discharge. Patient is cleared for discharge and follow-up outpatient. She was discharged on Colace to help avoid constipation. - Time Spent with Patient Total time spent providing and/or coordinating discharge services: Less than 30 minutes - Quality: VTE Deep Vein Thrombosis/Pulmonary Embolism Present on Admission: No Exam Vital signs: Vital Signs 09/01/17 12:00 09/01/17 15:55 09/01/17 20:00 Temperature 97.9 F 97.5 F L 98.5 F Pulse Rate 59 L 65 54 L Respiratory Rate 20 20 18 Blood Pressure 111/63 97/57 L 96/51 L Pulse Oximetry 98 99 100 09/01/17 22:00 09/01/17 23:51 09/02/17 00:10 Temperature 97.9 F Pulse Rate 60 Respiratory Rate 17 17 Blood Pressure 85/49 L 92/61 L Pulse Oximetry 97 09/02/17 04:00 09/02/17 08:00 Temperature 98.6 F 98.5 F Pulse Rate 59 L 51 L Respiratory Rate 17 14 Blood Pressure 96/56 L 100/64 Pulse Oximetry 97 98 Intake & Output 09/01/17 09/02/17 09/02/17 18:59 06:59 18:59 Intake Total 720 / 720 1100 / 1100 Output Total 2 / 2 Balance 718 / 718 1100 / 1100 Intake: IV 1100 / 1100 LR 1000 mL Inj 1,000 ML @ 100 1000 / 1000 mls/hr IV.CONT .Q10H [facility]EYNEP Rx#: [id number] Oral 720 / 720 Output: Stool 2 / 2 Other: Date of Last Bowel Movement 09/01/17 09/01/17 # Bowel Movements 2 Narrative: GENERAL: This is a well-nourished, well-developed patient, in no apparent distress. CARDIOVASCULAR: Normal rate and regular rhythm without murmurs, gallops, or rubs. RESPIRATORY: Good respiratory efforts. Breath sounds equal and clear to auscultation bilaterally. GASTROINTESTINAL: Abdomen soft, non-tender, non-distended. Normal active bowel sounds MUSCULOSKELETAL: Extremities without cyanosis, or edema. NEURO: Alert & Oriented x4 to person, place, time, situation. Moves all ext x4 PSYCH: Appropriate mood and affect. Results Procedures completed during hospitalization: None - Impressions ITS Impressions Abdomen/Pelvis CT 08/31/17 02:51 CONCLUSION: 1. Small anterior abdominal wall hernia approximately 5 cm caudal to the umbilicus containing a loop of small bowel with obstruction of the immediate afferent small bowel loops. No evidence for bowel infarction or perforation. Chest X-Ray 08/31/17 02:51 CONCLUSION: 1. No acute abnormality or significant interval change. Discharge Plan - Discharge Disposition Patient Disposition: 01 Discharge Home - Discharge Condition Condition: Good - Discharge Order Discharge Orders: Discharge Order (Routine); Ordered 09/02/17 Ordered By: Arnaud Erickson - Physicians Team Primary Care Provider: Primary Care Benita,Mitzi Attending Provider: Arnaud Erickson Other Providers: Arthur Gan MD ; Surgeons,[facility]
--- NOTE | 2017-09-02 16:29 | P.PNGS ---
Subjective Patient reports: feels better (no nausea or vomiting, tolerating liquids) Physical Exam Vital signs: Vital Signs 09/01/17 20:00 09/01/17 22:00 09/01/17 23:51 Temperature 98.5 F 97.9 F Pulse Rate 54 L 60 Respiratory Rate 18 17 17 Blood Pressure 96/51 L 85/49 L Pulse Oximetry 100 97 09/02/17 00:10 09/02/17 04:00 09/02/17 08:00 Temperature 98.6 F 98.5 F Pulse Rate 59 L 56 L Respiratory Rate 17 14 Blood Pressure 92/61 L 96/56 L 100/64 Pulse Oximetry 97 98 Intake & Output 09/01/17 09/02/17 09/02/17 18:59 06:59 18:59 Intake Total 720 / 720 1100 / 1100 Output Total 2 / 2 Balance 718 / 718 1100 / 1100 Intake: IV 1100 / 1100 LR 1000 mL Inj 1,000 ML @ 100 1000 / 1000 mls/hr IV.CONT .Q10H [facility] Rx#: [id number] Oral 720 / 720 Output: Stool 2 / 2 Other: Date of Last Bowel Movement 09/01/17 09/01/17 # Bowel Movements 2 - Routine Abdominal Exam Present: soft (palpable reducible hernia ), normoactive bowel sounds Assessment and Plan - Plan ventral incisional hernia, sp reduction PLAN Ok for advance diet abdominal exams non op mgnt for now d/c home
== END 2017-09-02 15:10 | disposition home or self-care (01) ==
LOC: NEPE 01:58 → NEDA 06:32 → NEPFCDU 13:42
PROVIDERS: ADMIT Family Medicine; ATTEND Family Medicine